=== PATIENT | male | born 1960 | race Caucasian/White ===

== ENCOUNTER 2020-02-22 20:55 | Inpatient (IN) ==
[2020-02-22] MEDS ORDERED: OPTIRAY 320 125ml IV ONE (21:37)
[2020-02-22 21:41] LABS: Basophils # (auto) 0.03 K/uL (0-0.2); Basophils % (auto) 0.3 %; Eosinophils # (auto) 0.28 K/uL (0-0.5); Eosinophils % (auto) 3.1 %; Hematocrit (blood only) 42.7 % (42-52); Hemoglobin 14.6 g/dL (14.0-18.0); Immature Granulocytes # (auto) 0.01 K/uL (0.00-0.02); Immature Granulocytes % (auto) 0.1 %; Lymphocytes # (auto) 2.67 K/uL (1.2-3.4); Lymphocytes % (auto) 29.9 %; Mean Corpuscular Hemoglobin 31.1 pg (25-34); Mean Corpuscular Hgb Conc 34.2 g/dL (32-36); Mean Platelet Volume 10.2 fL (7.4-10.4); Monocytes # (auto) 0.76 K/uL (0.11-0.59); Monocytes % (auto) 8.5 %; Neutrophils # (auto) 5.18 K/uL (1.4-6.5); Neutrophils % (auto) 58.1 %; Platelet Count 213 K/uL (130-400); RDW Standard Deviation 42.8 fL (36.4-46.3); Red Blood Count 4.69 M/uL (4.7-6.1); White Blood Count 8.93 K/uL (4.8-10.8)
[2020-02-22 21:46] LABS: iSTAT Creatinine 0.7 mg/dl (0.6-1.3); iSTAT Ionized Calcium 1.19 mmol/l (1.12-1.32)
[2020-02-22 21:50] LABS: INR 0.9 (0.9-1.1); Partial Thromboplastin Time 26.8 Seconds (21.0-31.0)
[2020-02-22 22:06] LABS: Alanine Aminotransferase 45 U/L (12-78); Albumin Level 3.6 gm/dl (3.4-5.0); Alkaline Phosphatase 69 U/L (45-117); BUN Creatinine Ratio 18.9 (10-20); Bilirubin,Total 0.3 mg/dl (0.2-1); Blood Urea Nitrogen 17 mg/dl (7-18); Calcium 8.6 mg/dl (8.5-10.1); Carbon Dioxide 27 mmol/L (21-32); Chloride 110 mmol/L (98-107); Creatinine Clr Calc Pharmacy 105.2 ml/min; Est GFR (African American) 109.2; Est GFR (Non-African American) 94.3; Globulin 3.7 gm/dl (2.5-4.0); Glucose 97 mg/dl (70-99); Sodium 142 mmol/L (136-145); Total Protein 7.3 gm/dl (6.4-8.2); Troponin I < 0.015 ng/ml (0-0.045)
--- NOTE | 2020-02-22 22:33 | Emergency Department Note ---
Impression & Plan Slurred speech, Facial droop, Tremor, High serum chloride ED Provider Note NAME: OBED EDWARD AGE: 59 SEX: M : 1960 ARRIVES VIA: Walk-In INFORMANT: Patient ED PROVIDER(S): Quentin Tobin DO CHIEF COMPLAINT: Slurred speech, stuttering speech HPI: Patient is a 59-year-old male who presents the ER for slurred speech. Symptoms have been present since this past Friday and Friday. is also noticed small amount of facial droop the right corner of the mouth. They have been constantly present but waxing and waning in intensity. He notes he got worse earlier today. Persistently drooling out of the right side of the mouth. notes that he has been having trouble getting his words out and has been slurring his words. She also notes that he has been drooling a significant amount. He notes that he has been drooling on both sides of his mouth since this past Friday. He denies any focal weakness or numbness in his arms or legs. He does have some numbness on the right side of his face. No other exacerbating or remitting factors. ROS: See above HPI for pertinent positives & negatives. A total of 10 systems reviewed and were otherwise negative. PAST MEDICAL HISTORY:See Below PAST SURGICAL HISTORY:See Below FAMILY HISTORY:See Below SOCIAL HISTORY:See Below HOME MEDICATIONS:See Below ALLERGIES:See Below VITALS:See Below PHYSICAL EXAMINATION: GENERAL: Sitting up in bed, alert, well appearing, well nourished, no distress, non-toxic EYE EXAM: normal conjunctiva. PERRL and EOM's intact. OROPHARYNX: no exudate, no erythema, lips, buccal mucosa, and tongue normal and mucous membranes are moist NECK: supple, no nuchal rigidity, no adenopathy, non-tender LUNGS: Clear to auscultation. Normal chest wall mechanics HEART: no murmurs, S1 normal and S2 normal ABDOMEN: abdomen soft, non-tender, normo-active bowel sounds, no masses, no rebound or guarding. BACK: Back is symmetrical on inspection and there is no deformity, no midline tenderness, no CVA tenderness. SKIN: no rashes and no bruising UPPER EXTREMITIES: upper extremities are grossly normal. LOWER EXTREMITIES: No pitting edema. NEURO EXAM: Normal sensorium, cranial nerves II-XII intact, stuttering speech, no weakness of arms, no weakness of legs. No drift. Finger to nose intact. Gross sensation intact. MEDICAL DECISION MAKING: Patient is a 59-year-old male who presents the ER for slurred speech, right- sided mouth droop, paresthesias on the right side of his face. He denies any other focal weakness or numbness. IV was established blood work is obtained. Labs show no significant leukocytosis or anemia. INR was unremarkable. BMP wi th a slightly elevated chloride. LFTs bilirubin was unremarkable. Troponin was negative. UA was pending. CT as well as CT angios the head and neck was negative. Patient was updated bedside. On my exam I noticed no clear droop at the right side of his mouth although the notes that it is there. With this in the slurred speech did feel after discussion with the patient is reasonable to bring him in for further evaluation. Discussed with hospitalist. Triage Nursing notes reviewed. Prior medical records reviewed Vital Signs: reviewed and remarkable for HTN Differential diagnosis: Differential Diagnosis includes but is not limited to ischemic Stroke, hemorrhagic stroke, bells palsy, mass, neoplasm, migraine headache, seizure, subarachnoid hemorrhage, TIA, and transient global amnesia. ER treatment provided: See below Diagnostics interpreted by me: ECG: Sinus rhythm rate of 70 Left axis Poor baseline Normal QTC No PVCs Cardiac Monitoring: An order was placed for continuous cardiac monitoring. The monitor shows a rate of 75 with sinus rhythm. Laboratory studies: As stated above and show below. Imaging studies: CT Angio of the head shows a hypoplastic distal right vert CT angios of the cervical spine was negative CT of the head shows no acute pathology Consultation(s): D/w Dr. Grady Flood for further evaluation ED COURSE: Procedures: none Critical Care: None Past Med/Surg History Social History Smoking Status: Never smoker Preferred Language: French Feels Safe at Home: Yes Allergies Allergies Allergy/AdvReac Type Severity Reaction Status Date / Time No Known Allergies Allergy Unverified 02/22/20 22:41 Home Meds Home Medications Medication Instructions Recorded Confirmed lorazepam 0.5 mg PO UD PRN 02/22/20 02/22/20 melatonin 15 mg PO HS 02/22/20 02/22/20 pantoprazole [Protonix] 40 mg PO DAILY 02/22/20 02/22/20 paroxetine HCl [Paxil] 20 mg PO DAILY 02/22/20 02/22/20 valbenazine [Ingrezza] 40 mg PO DAILY 02/22/20 02/22/20 Results & Data (ED) Vital Signs Vital Signs - 24 hr 02/22/20 20:58 02/22/20 21:23 02/22/20 22:04 Temperature 36.7 C Temperature Source Oral Pulse Rate 87 Pulse Rate [Apical] Pulse Rate from SpO2 Sensor 73 Pulse Rhythm [Apical] Pulse Strength [Apical] Respiratory Rate 18 Respiratory Effort / Characteristics Non-Labored Respiratory Depth Normal Blood Pressure 131/98 Blood Pressure [Left Arm] Blood Pressure Mean 109 Blood Pressure Mean [Left Arm] Blood Pressure Position [Left Arm] Pulse Oximetry 96 95 95 Oxygen Delivery Method Room Air Room Air Sepsis Recent Fever Within 48 Hours No Sepsis New/Unexplained Change in Mental Status N/A Sepsis Action Taken by Nursing No Action Required 02/22/20 22:05 02/22/20 22:10 02/22/20 22:20 Temperature Temperature Source Pulse Rate 78 75 74 Pulse Rate [Apical] 73 Pulse Rate from SpO2 Sensor 73 72 69 Pulse Rhythm [Apical] Regular Pulse Strength [Apical] Normal Respiratory Rate 15 16 21 Respiratory Effort / Characteristics Non-Labored Spontaneous Respiratory Depth Normal Blood Pressure 145/83 H Blood Pressure [Left Arm] 145/83 H Blood Pressure Mean 100 Blood Pressure Mean [Left Arm] 103 Blood Pressure Position [Left Arm] Semi-fowlers Pulse Oximetry 96 97 95 Oxygen Delivery Method Room Air Sepsis Recent Fever Within 48 Hours Sepsis New/Unexplained Change in Mental Status Sepsis Action Taken by Nursing 02/22/20 22:30 02/22/20 22:40 Temperature Temperature Source Pulse Rate 71 69 Pulse Rate [Apical] Pulse Rate from SpO2 Sensor 69 70 Pulse Rhythm [Apical] Pulse Strength [Apical] Respiratory Rate 18 15 Respiratory Effort / Characteristics Respiratory Depth Blood Pressure 140/94 Blood Pressure [Left Arm] Blood Pressure Mean 101 Blood Pressure Mean [Left Arm] Blood Pressure Position [Left Arm] Pulse Oximetry 95 97 Oxygen Delivery Method Sepsis Recent Fever Within 48 Hours Sepsis New/Unexplained Change in Mental Status Sepsis Action Taken by Nursing Laboratory Data Result diagrams: 02/22/20 21:32 02/22/20 22:16 Lab Results 02/22/20 02/22/20 02/22/20 Range/Units 21:28 21:32 21:32 WBC 8.93 (4.8-10.8) K/uL RBC 4.69 L (4.7-6.1) M/uL Hgb 14.6 (14.0-18.0) g/dL POC Hgb (14.0-18.0) g/dl Hct 42.7 (42-52) % POC Hct (42-52) % MCV 91.0 (80-100) fL MCH 31.1 (25-34) pg MCHC 34.2 (32-36) g/dL RDW Std Deviation 42.8 (36.4-46.3) fL RDW Coeff of Edwar 13.0 (11.5-14.5) % Plt Count 213 (130-400) K/uL MPV 10.2 (7.4-10.4) fL Immature Gran % (Auto) 0.1 % Neut % (Auto) 58.1 % Lymph % (Auto) 29.9 % [place] % (Auto) 8.5 % Eos % (Auto) 3.1 % Baso % (Auto) 0.3 % Neut # (Auto) 5.18 (1.4-6.5) K/uL Lymph # (Auto) 2.67 (1.2-3.4) K/uL [place] # (Auto) 0.76 H (0.11-0.59) K/uL Eos # (Auto) 0.28 (0-0.5) K/uL Baso # (Auto) 0.03 (0-0.2) K/uL Immature Gran # (Auto) 0.01 (0.00-0.02) K/uL PT 10.0 (9.0-12.0) Seconds INR 0.9 (0.9-1.1) APTT 26.8 (21.0-31.0) Seconds PTT Ratio 1.0 POC Sodium (135-144) mmol/L Sodium (136-145) mmol/L POC Potassium (3.3-5.0) mmol/L Potassium (3.5-5.1) mmol/L POC Chloride (101-112) mmol/L Chloride (98-107) mmol/L Carbon Dioxide (21-32) mmol/L POC Total CO2 (24-31) mmol/L Anion Gap (3-11) POC Anion Gap (16-25) mmol/L POC BUN (7-18) mg/dl BUN (7-18) mg/dl Creatinine (0.6-1.4) mg/dl POC Creatinine (0.6-1.3) mg/dl Est Cr Clr Drug Dosing ml/min Est GFR ( Amer) Est GFR (Non-Af Amer) BUN/Creatinine Ratio (-20) Glucose (70-99) mg/dl POC Glucose 94 (70-99) mg/dl POC Glucose (other) (70-99) mg/dl Calcium (8.5-10.1) mg/dl POC Ioniz Calcium Rolando (1.12-1.32) mmol/l Magnesium (1.8-2.4) mg/dl Total Bilirubin (0.2-1) mg/dl AST (15-37) U/L ALT (12-78) U/L Alkaline Phosphatase (45-117) U/L Troponin I (0-0.045) ng/ml Total Protein (6.4-8.2) gm/dl Albumin (3.4-5.0) gm/dl Globulin (2.5-4.0) gm/dl Albumin/Globulin Ratio (0.9-2) 02/22/20 02/22/20 02/22/20 Range/Units 21:32 21:35 22:16 WBC (4.8-10.8) K/uL RBC (4.7-6.1) M/uL Hgb (14.0-18.0) g/dL POC Hgb 15.0 (14.0-18.0) g/dl Hct (42-52) % POC Hct 44 (42-52) % MCV (80-100) fL MCH (25-34) pg MCHC (32-36) g/dL RDW Std Deviation (36.4-46.3) fL RDW Coeff of Edwar (11.5-14.5) % Plt Count (130-400) K/uL MPV (7.4-10.4) fL Immature Gran % (Auto) % Neut % (Auto) % Lymph % (Auto) % [place] % (Auto) % Eos % (Auto) % Baso % (Auto) % Neut # (Auto) (1.4-6.5) K/uL Lymph # (Auto) (1.2-3.4) K/uL [place] # (Auto) (0.11-0.59) K/uL Eos # (Auto) (0-0.5) K/uL Baso # (Auto) (0-0.2) K/uL Immature Gran # (Auto) (0.00-0.02) K/uL PT (9.0-12.0) Seconds INR (0.9-1.1) APTT (21.0-31.0) Seconds PTT Ratio POC Sodium 142 (135-144) mmol/L Sodium 142 (136-145) mmol/L POC Potassium 4.0 (3.3-5.0) mmol/L Potassium 3.9 (3.5-5.1) mmol/L POC Chloride 106 (101-112) mmol/L Chloride 110 H (98-107) mmol/L Carbon Dioxide 27 (21-32) mmol/L POC Total CO2 23 L (24-31) mmol/L Anion Gap 5.0 (3-11) POC Anion Gap 18.0 (16-25) mmol/L POC BUN 18 (7-18) mg/dl BUN 17 (7-18) mg/dl Creatinine 0.89 (0.6-1.4) mg/dl POC Creatinine 0.7 (0.6-1.3) mg/dl Est Cr Clr Drug Dosing 105.2 ml/min Est GFR ( Amer) 109.2 Est GFR (Non-Af Amer) 94.3 BUN/Creatinine Ratio 18.9 (10-20) Glucose 97 (70-99) mg/dl POC Glucose (70-99) mg/dl POC Glucose (other) 101 H (70-99) mg/dl Calcium 8.6 (8.5-10.1) mg/dl POC Ioniz Calcium Rolando 1.19 (1.12-1.32) mmol/l Magnesium 2.1 (1.8-2.4) mg/dl Total Bilirubin 0.3 (0.2-1) mg/dl AST 28 (15-37) U/L ALT 45 (12-78) U/L Alkaline Phosphatase 69 (45-117) U/L Troponin I < 0.015 (0-0.045) ng/ml Total Protein 7.3 (6.4-8.2) gm/dl Albumin 3.6 (3.4-5.0) gm/dl Globulin 3.7 (2.5-4.0) gm/dl Albumin/Globulin Ratio 1.0 (0.9-2) Administered Medications Discontinued Medications Ioversol (Optiray 320 125ml) 117 ml IV ONCE ONE Stop: 02/22/20 21:38 Last Admin: 02/22/20 21:38 Dose: 1 ml Documented by: [id number] Discharge Plan Visit Data Chief Complaint: Stroke/CVA Symptoms Stated Complaint: REF BY DOCTOR, SLURRED SPEECH, DROOLING ED Provider: Quentin Tobin Discharge Problem: Slurred speech, Facial droop, Tremor, High serum chloride Forms Stand Alone Forms: My [facility] Prescriptions Prescriptions: No Action lorazepam 0.5 mg Tablet 0.5 mg PO UD PRN (Reason: Anxiety) RF: 0 paroxetine HCl [Paxil] 20 mg Tablet 20 mg PO DAILY RF: 0 pantoprazole [Protonix] 40 mg Tablet,Delayed Release (Dr/Ec) 40 mg PO DAILY RF: 0 melatonin 5 mg Tablet 15 mg PO HS RF: 0 Ingrezza 40 mg Capsule 40 mg PO DAILY RF: 0
[2020-02-22 22:41] LABS: Potassium 3.9 mmol/L (3.5-5.1)
[2020-02-22 22:46] LABS: Magnesium 2.1 mg/dl (1.8-2.4)
[2020-02-22 23:50] LABS: Appearance Urine Clear (Clear); Bacteria Urine Automated 1+ (Negative); Bilirubin Urine Negative (Negative); Blood Urine 2+ (Negative); Color Urine Yellow; Epithelial Cell Urine Auto 0-5 /lpf (0-5); Glucose Urine UA Negative (Negative); Ketones Urine Negative (Negative); Leukocyte Esterase Urine Trace (Negative); Nitrite Urine Positive (Negative); Protein Urine Negative (Negative); Specific Gravity Urine > 1.045 (1.000-1.030); Urobilinogen Urine Negative (Negative); WBC Urine Automated >30 /hpf (0-5); pH Urine 7.5 (4.5-7.5)
--- NOTE | 2020-02-23 01:00 | History & Physical Report ---
Date of Service February 23, 2020 Assessment & Plan (1) Slurred speech: Gokul Parikh is a 59 year old man with a past medical history significant for depression who presents with four days of greatly increased drooling and stuttering difficult speech, thought she might have noticed a facial droop per history but none present on my examination Drooling and Stuttering speech Imaging all negative, no facial droop, just increased salivation and stammering, no focal weakness on exam No new medications, no new exposures Likely to be secondary to his tardive dyskinesia medication valbenazine Both drooling and extrapyrimidal side effects listed as common side effects Will hold this medication and see if patient improves Not familiar with this medication besides my brief research tonight, will consult neurology for further guidance and decision on further workup/imaging Depression/Anxiety Continuing home paroxetine and lorazepam prn DVT PPx: Lovenox F/E/N: Regular diet Dispo: Admit holding valbendazine, consulted neurology Full Code (2) Facial droop: (3) Tremor: History of Present Illness Chief Complaint: Drooling, stuttering Primary Care Provider: Leo Collins Gokul Parikh is a 59 year old man with a past medical history with a past medical history significant for depression who presents for drooling and stuttering speech pattern for last 3-4 days. He has been hospitalized for his depression in [place] and he was given an SSRI and abilify, he unfortunately developed tardive dyskinesia secondary to his antipsychotic use. He was seen by a neurologist in [place] who told him this and then he decided to seek a second opinion last year and saw a neurologist at [place] who decided to place patient on valbenazine to try to help with his tardive dyskinesia symptoms of hand and leg movement problems. This medication was somewhat helpful for him, he is now just on this medication lorazepam PRN and paroxetine 20 mg daily. His depression and anxiety has been under better control. He is also on protonix and melatonin. For past 3-4 days his speech has been abnormal, he has been stuttering and stammering, and he has been drooling more than he ever has. Says the drooling has been pouring out of his mouth and he would go to wipe it with his handkerchief and within an hour he had completely soaked two handkerchiefs. He has not been having any other concerning symptoms no fevers, no chills, no shortness of breath, no chest pain, no palpitations, no presyncope, no abdominal pain, nausea vomiting diarrhea, or constipation. Has not been on any new medications or dose changes Lives at home with , non smoker, non drinker, no drug use. FUll code Allergies Allergy/AdvReac Type Severity Reaction Status Date / Time No Known Allergies Allergy Unverified 02/22/20 22:41 Home Medications Home Medications Medication Instructions Recorded Confirmed Type Ingrezza 40 mg PO DAILY 02/22/20 02/22/20 History lorazepam 0.5 mg PO UD PRN 02/22/20 02/22/20 History melatonin 15 mg PO HS 02/22/20 02/22/20 History pantoprazole [Protonix] 40 mg PO DAILY 02/22/20 02/22/20 History paroxetine HCl [Paxil] 20 mg PO DAILY 02/22/20 02/22/20 History cephalexin 500 mg PO BID 10 Days #20 cap 02/23/20 Rx prednisone 60 mg PO DAILY 6 Days #18 tab 02/23/20 Rx Past Med/Surg History Medical History (Updated 02/24/20 @ 00:02 by Remedios Daanthony) Depression Facial droop Hyperparathyroidism Lung nodule Tardive dyskinesia Tremor Social History Smoking Status: Never smoker Hx Alcohol Use: No Hx Substance Use: No Preferred Language: Afghan Communication Ability: Effective Time Broker Required: No Beliefs That Will Affect Care: None Current Living Situation: Spouse Feels Safe at Home: Yes Assistive Devices: Glasses Review of Systems Review of Systems: All systems reviewed & are unremarkable except as noted in HPI & below Physical Exam Physical Exam: Constitutional: Well appearing 59 year old man, stuttering and stammering as he answers my questions, left hand and right foot continuously bouncing up and down. Eyes: PERRLA bilaterally, EOMMI bilaterally no nystagmus ENMT: NAD Neck: NAD, No JVD Respiratory: regular rate, no increased work of breathing, lung sounds vesicular in all lung acstillo, Cardiovascular: Regular rate rhythm, no murmurs, rubs, skips or gallops, no lower limb edema GI: Abdomen soft non tender no masses or organomegaly MSK: NAD strenth intact despite tremors Neuro: Coarse tremor of distal right upper and distal right lower extremities, stuttering stammering speech, CN II-XII intact, hyperreflexive globally, strength equal bilaterally upper and lower extremities Results & Data Results & Data ([facility]) Vital Signs (Past 12 Hours) Vital Signs Temp Pulse Pulse Resp BP BP Pulse Ox 02/23/20 00:32 74 14 160/86 H 98 02/23/20 00:30 70 16 97 02/23/20 00:04 65 02/23/20 00:01 16 137/54 L 02/22/20 23:30 120/77 97 02/22/20 23:19 67 145/87 H 96 02/22/20 23:02 71 17 89/28 L 96 02/22/20 23:00 72 20 97 02/22/20 22:40 69 15 97 02/22/20 22:30 71 18 140/94 95 02/22/20 22:20 74 21 95 02/22/20 22:10 75 16 97 02/22/20 22:05 78 73 15 145/83 H 145/83 H 96 02/22/20 22:04 95 02/22/20 21:23 95 02/22/20 20:58 36.7 C 87 18 131/98 96 Supervising Physician Co-Signing Physician Notes Attending addendum: I have physically seen this patient, have supervised the medical residents act ivities, and agree with the H&P unless as otherwise noted. Assessment and Plan: Right facial droop/slurred speech- Facial droop no longer present, main symptom is increased elevation and stammering. TIA versus side effect of medication valbenazine, which will be held until assessed by neurology Depression with anxiety- Continue Paroxetine and lorazepam. GERD- Continue pantoprazole. Remaining orders and notations as noted. Resident Activity Tracking Resident Involvement: Resident Care Provided Care Provided: [facility]
[2020-02-23] MEDS ORDERED: LORazepam 0.5 MG TAB PO PRN (02:48)
[2020-02-23] MEDS ORDERED: POLYETHYLENE (MIRALAX) 17 GM PACK PO PRN (02:48)
[2020-02-23] MEDS ORDERED: ALUMINUM/MAGNESIUM SUSP 30 ML UDC PO PRN (02:48)
[2020-02-23] MEDS ORDERED: ONDANSETRON INJ 2 MG/ML 2 ML VIAL IV PRN (02:48)
[2020-02-23] MEDS ORDERED: ACETAMINOPHEN 325 MG TAB PO PRN (02:48)
--- NOTE | 2020-02-23 06:35 | XRay Report ---
XR chest 1V portable HISTORY: 59 years-old Male cva acute strokelike symptoms COMPARISON: None TECHNIQUE: Portable AP view of the chest FINDINGS: Cardiomediastinal and hilar silhouettes are within normal limits. Minimal linear subsegmental atelect asis/scarring of the left lung base. No pneumothorax, pleural effusion, airspace consolidation or ove rt pulmonary edema. Bones of the chest appear grossly intact. IMPRESSION: No acute process. ACT 112: Negative or not required by law. The above report was generated using voice recognition software. It may contain grammatical, syntax o r spelling errors. Electronically signed by: Jan Linares M.D. 02/23/2020 6:34 AM
--- NOTE | 2020-02-23 07:28 | CT Scan Report ---
CT head/brain wo con CLINICAL HISTORY: 59 years-old Male with Stroke evaluation . Acute strokelike symptoms TECHNIQUE: Multiple axial CT images of the head were obtained without contrast. A dose lowering tech nique was utilized adhering to the principles of ALARA. COMPARISON: CTA head and neck of same day FINDINGS: No acute intracranial hemorrhage, midline shift, intracranial mass, hydrocephalus, territorial ischem ia or abnormal extra-axial collection. Mild age-related involutional changes. The calvarium is intact. The paranasal sinuses, mastoid air cells, and middle ear cavities are clear . IMPRESSION: No acute intracranial abnormality. ACT 112: Negative or not required by law. The above report was generated using voice recognition software. It may contain grammatical, syntax o r spelling errors. Electronically signed by: Jan Linares M.D. 02/23/2020 7:27 AM
--- NOTE | 2020-02-23 07:35 | CT Scan Report ---
CT angio head w con, CT angio neck with con CLINICAL HISTORY: 59 years-old Male with Stroke evaluation . Acute strokelike symptoms COMPARISON STUDY: Head CT of same day TECHNIQUE: Following the IV administration of 119 cc of Optiray 320, CT angiogram of the head and nec k was performed from the skull base to the vertex. Images are reviewed in the axial, sagittal, and co geno planes. 3-D MIPS images are created and assessed. IV contrast was administered without complica tion. All measurements were obtained according to NASCET criteria. A dose lowering technique was util ized adhering to the principles of ALARA. CT DOSE: 1143.87 mGy.cm FINDINGS: The imaged opacified pulmonary arteries appear normal. Three-vessel morphology of the thoracic aorta arch. Patency of the innominate and imaged subclavian arteries. Patent common carotid arteries. Mild mixed plaque of the carotid bulbs and proximal cervical segments of the internal carotid arteries res ults in less than 50% luminal narrowing. Internal carotid arteries are widely patent. The middle and anterior cerebral arteries are patent. Fenestrated right A1 segment. Dominant left vertebral artery. The majority of the right vertebral artery terminates into the right PICA. Patent basilar artery. Pat ent basilar arteries. The cerebral venous sinuses are patent. There is no abnormal intracranial enhan cement. Lung apices are generally clear. 5 mm partially imaged nodular opacity of the right lung apex on imag e 1 series 4 suggestive of a probable lymph node. Unremarkable soft tissues. Degenerative changes of the cervical spine. Nuchal ligament calcifications. Mild mucosal thickening of the ethmoid and spheno id sinuses. IMPRESSION: Unremarkable CTA of the head and neck without aneurysm, dissection, high-grade stenosis o r proximal branch occlusion. ACT 112: Negative or not required by law. The above report was generated using voice recognition software. It may contain grammatical, syntax o r spelling errors. Electronically signed by: Jan Linares M.D. 02/23/2020 7:33 AM
[2020-02-23] MEDS ORDERED: PARoxetine HCL 20 MG TAB PO SCH (09:00)
[2020-02-23] MEDS ORDERED: ENOXAPARIN INJ 40 MG/0.4 ML SYR SQ SCH (09:00)
[2020-02-23] MEDS ORDERED: PANTOprazole 40 MG TAB PO SCH (09:00)
[2020-02-23 09:13] LABS: Estimated Average Glucose 103 mg/dl; Hemoglobin A1C 5.2 % (4.5-5.6)
[2020-02-23] MEDS ORDERED: GADOBUTROL 65ML VIAL IV ONE (09:35)
[2020-02-23 09:40] LABS: Thyroid Stimulating Hormone 1.55 uIu/ml (0.300-4.500)
--- NOTE | 2020-02-23 10:02 | Magnetic Resonance Report ---
MR brain wo/w con HISTORY: 59 years-old Male facial droop.drooling,r/o CVA or intracranial lesi acute strokelike sympt oms with right-sided facial numbness and slurred speech COMPARISON: Head CT 02/22/2020 TECHNIQUE: Multiplanar multisequence MRI of the brain was obtained both with and without the use of 8 .0 mL Gadavist FINDINGS: Bag Mender localizer images demonstrate no gross extracranial abnormality. No restricted diffusion to sugg est acute or subacute infarct. Midline structures including the corpus callosum, brainstem, optic chi asm, pituitary and pineal glands appear unremarkable the sagittal T1 series. No cerebellar tonsillar herniation. Degenerative changes of the imaged cervical spine. There is no acute intracranial hemorrhage, midline shift, abnormal extra-axial collection, hydrocepha joseluis or intracranial mass. There are a few scattered some centimeter foci of T2/FLAIR prolongation wit hin the subcortical white matter, likely of no clinical significance. No abnormal intra-axial or extr a-axial enhancement. Study is mildly motion degraded. The major arterial flow voids at the level lung base are patent. Interval venous sinuses are also patent. Mastoid air cells are clear. Mild mucosal thickening of the ethmoid air cells. The skull, orbits and soft tissues are unremarkable. IMPRESSION: 1. Mildly motion degraded exam without acute intracranial abnormality, specifically there is no evide nce of acute or subacute infarct. 2. No abnormal enhancement. ACT 112: Negative or not required by law. The above report was generated using voice recognition software. It may contain grammatical, syntax o r spelling errors. Electronically signed by: Jan Linares M.D. 02/23/2020 10:01 AM
--- NOTE | 2020-02-23 11:48 | Electrocardiogram Report ---
Test Reason : Blood Pressure : / mmHG Vent. Rate : 070 BPM Atrial Rate : 070 BPM P-R Int : 202 ms QRS Dur : 094 ms QT Int : 388 ms P-R-T Axes : 054 -55 058 degrees QTc Int : 419 ms Poor data quality, interpretation may be adversely affected Normal sinus rhythm Left anterior fascicular block Abnormal ECG No previous ECGs available Confirmed by Elliot Garcia ([id number]) on 02/23/2020 11:47:58 AM Referred By: Leo Collins Confirmed By:Uli Garcia
--- NOTE | 2020-02-23 12:28 | Hospitalist Progress Note ---
Date of Service February 23, 2020 Assessment & Plan Admission and Anticipated Discharge Date Admission Date: February 23, 2020 Results & Data Results & Data ([facility]) Vital Signs (Past 12 Hours) Vital Signs Temp Pulse Pulse Resp BP BP Pulse Ox 02/23/20 11:49 36.9 C 73 20 118/78 93 02/23/20 07:50 36.9 C 73 18 138/81 97 02/23/20 07:00 75 02/23/20 05:00 148/76 H 02/23/20 03:00 61 02/23/20 02:50 36.3 C L 61 18 160/82 H 02/23/20 02:07 60 14 114/72 98 02/23/20 00:32 74 14 160/86 H 98 02/23/20 00:30 70 16 97 PG Care Time/CCT Total # of Minutes Spent Total Time Spent with Patient: Total time spent is greater than 50% in coordination of care (as documented) at patient's floor/unit and/or counseling patient: Coding
[2020-02-23] MEDS ORDERED: cefTRIAXone SODIUM 2,000 MG in DEXTROSE 5% 50 ML IV SCH (13:00)
--- NOTE | 2020-02-23 13:11 | Neurology Consultation ---
Date of Consultation February 23, 2020 Assessment & Plan (1) Facial droop: Gokul Parikh is a 59 yo man w/ PMH of anxiety, ?tardive dyskinesia, h/o kidney stones and GERD who p/t [facility] with acute onset of dysarthria, word finding difficulty, drooling, right FP and right facial numbness. 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 No stroke on MRI brain to explain stuttering symptoms over several days (hence, does not meet criteria for TIA either). - please check Lyme screen - prednisone taper; doxycycline if Lyme if positive # Tremor: not classic for parkinsonism, nor with any other parkinsonian features on exam. Does have likely hummingbird sign on MRI brain. 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 Would send ceruloplasmin, serum copper, PTH, and peripheral smear to r/o acanthocytes. - will defer to his outpatient neurologist for further management of his tremor Thank you for this interesting consult. Plan of care discussed with primary team. Please call or text with questions. (2) Slurred speech: History of Present Illness Attending Physician: Emmy Araiza MD History of Present Illness Gokul Parikh is a 59 yo man w/ PMH of anxiety, ?tardive dyskinesia and GERD who p/t [facility] with acute onset of dysarthria, word finding difficulty, drooling, right FP and right facial numbness. 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 In the ED, patient afebrile, BP 131/98, heart rate 87, respiratory rate 18 satting 96% on room air. Labs notable for WBC 8.93, hemoglobin 14.6, platelets 213, INR 0.9, electrolytes within normal except for mildly elevated chloride 110, creatinine 0.89, glucose 97, calcium 8.6, magnesium 2.1, LFTs within normal, troponin negative. Images independently reviewed. CT head shows no hemorrhage or hypodensity, does have benign enlargement of extra-axial spaces anteriorly. CTA head and neck shows no LVO, high grade stenosis or aneurysm; the right vertebral artery is hypoplastic and terminates in the right PICA. MRI brain shows no acute infarct, small chronic lacunar infarct in the left basal ganglia, mild small vessel disease, questionable hummingbird sign on sagittal view. CXR no infection. Further lab work shows TSH WNL, LDL 107, A1c 5.2, and UA + for infection. EKG shows left anterior fascicular block. On examination today, he reports that he was in his normal state of health until Friday when he noticed an intermittent right facial droop a/w drooling, intermittent numbness in his right cheek V2 distribution, stuttering speech and intermittent pain in his jaw on the right side. Denies any recent illness, injury or tick bites. Notes that he has had a several month history of tremor in his left upper extremity and right lower extremity. This started after he was on multiple psychotropic medications including Abilify. He initially saw Dr. Guadarrama who did a Sinemet trial without improvement in tremor. He then saw Dr. Chase at [facility] who started him on the valbenazine. Not sure if he is noticing any difference in terms of tremor. Allergies Allergy/AdvReac Type Severity Reaction Status Date / Time No Known Allergies Allergy Unverified 02/22/20 22:41 Home Medications Home Medications Medication Instructions Recorded Confirmed Type lorazepam 0.5 mg PO UD PRN 02/22/20 02/22/20 History melatonin 15 mg PO HS 02/22/20 02/22/20 History pantoprazole [Protonix] 40 mg PO DAILY 02/22/20 02/22/20 History paroxetine HCl [Paxil] 20 mg PO DAILY 02/22/20 02/22/20 History valbenazine [Ingrezza] 40 mg PO DAILY 02/22/20 02/22/20 History Patient History Social History Smoking Status: Never smoker Hx Alcohol Use: No Hx Substance Use: No Preferred Language: Danish Communication Ability: Effective Finance Associate Required: No Beliefs That Will Affect Care: None Current Living Situation: Spouse Other Information That Helps Us Care for You: No Feels Safe at Home: Yes Safety Concerns: Feels Safe At This Time Assistive Devices: Glasses Review of Systems Review of Systems: 14 point review of systems completed and negative except as in HPI. Exam (Neuro) Physical Exam: General Exam: GEN: NAD, sitting in bed. HEENT: No conjunctival injection, no rhinorrhea. CV: RRR, no peripheral edema PULM: Nonlabored respirations on room air. Neuro Exam: MS: Awake and Alert. Oriented to person, place, and month/year date. Speech fluent and appropriate with minimal dysarthria and stuttering, no paraphasic errors. Language intact including naming, comprehension, repetition. Cognition and memory mildly impaired. Attention intact. No neglect. CN: Visual castillo full. No extinction to double simultaneous stimuli. Unable to visualize fundi on fundoscopic exam. PERRLA OU. EOMI without nystagmus, slow vertical saccades. Facial sensation intact to LT, reports slightly less sensation in the R V2 distribution. Facial muscles full and symmetric (perhaps subtle nasolabial fold on the right). Hearing intact to conversation. Uvula midline with symmetric palatal elevation. Shoulder shrug normal. Tongue midline. MOTOR: Normal bulk and tone, no cogwheeling. No pronator drift. BUE strength 5- /5 at deltoids, biceps, triceps, wrist flexors and extensors, and hand grasp bilaterally. BLE strength 5-/5 at iliopsoas, hamstrings, quadriceps, tibialis anterior, and gastrocnemius bilaterally. +high frequency LUE tremor REFLEXES: 1+ at biceps, triceps, brachioradialis, 1+ patella and trace Achilles bilaterally. Flexor plantar responses bilaterally. SENSORY: Intact to LT without extinction to double simultaneous stimuli. Vibration intact throughout. COORDINATION: No dysmetria or ataxia on [id number] on the RUE, mild difficulty with intention tremor on FTN in the LUE. Finger taps are irregular speed but normal amplitude. GAIT: deferred given physical status Results & Data ([facility]) Vital Signs (Past 12 Hours) Vital Signs Temp Pulse Pulse Resp BP Pulse Ox 02/23/20 11:49 36.9 C 73 20 118/78 93 02/23/20 07:50 36.9 C 73 18 138/81 97 02/23/20 07:00 75 02/23/20 05:00 148/76 H 02/23/20 03:00 61 02/23/20 02:50 36.3 C L 61 18 160/82 H 02/23/20 02:07 60 14 114/72 98 PG Care Time/CCT Total # of Minutes Spent Total Time Spent with Patient: Total time spent is greater than 50% in coordination of care (as documented) at patient's floor/unit and/or counseling patient: Coding Level of Care Code 61234 Inpt Consult Level 5 Diagnoses Facial droop R29.810 Slurred speech R47.81
[2020-02-23] MEDS ORDERED: predniSONE 20 MG TAB PO SCH (17:00)
--- NOTE | 2020-02-23 17:08 | Discharge Summary ---
Date of Service February 23, 2020 Admission HPI Per Admitting Provider Gokul Parikh is a 59 year old man with a past medical history with a past medical history significant for depression who presents for drooling and stuttering speech pattern for last 3-4 days. He has been hospitalized for his depression in [place] and he was given an SSRI and abilify, he unfortunately developed tardive dyskinesia secondary to his antipsychotic use. He was seen by a neurologist in [place] who told him this and then he decided to seek a second opinion last year and saw a neurologist at [place] who decided to place patient on valbenazine to try to help with his tardive dyskinesia symptoms of hand and leg movement problems. This medication was somewhat helpful for him, he is now just on this medication lorazepam PRN and paroxetine 20 mg daily. His depression and anxiety has been under better control. He is also on protonix and melatonin. For past 3-4 days his speech has been abnormal, he has been stuttering and stammering, and he has been drooling more than he ever has. Says the drooling tapia s been pouring out of his mouth and he would go to wipe it with his handkerchief and within an hour he had completely soaked two handkerchiefs. He has not been having any other concerning symptoms no fevers, no chills, no shortness of breath, no chest pain, no palpitations, no presyncope, no abdominal pain, nausea vomiting diarrhea, or constipation. Has not been on any new medications or dose changes Lives at home with , non smoker, non drinker, no drug use. 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 versus exacerbation of existing tardive dyskinesia secondary to urinary tract infection Discharge Exam Constitutional WD/WN, vitals as above Eyes PERRL, conjunctivae normal, anicteric sclerae EOM intact bilaterally; no anisocoria and no nystagmus ENMT external ear and nose normal, oropharynx normal Mouth: + tongue abnormality (Tongue with frequent lateral thrusting) Very minimal clear drool coming from right side of mouth at times Neck trachea midline, no thyromegaly Respiratory normal respiratory effort, lungs clear to auscultation Cardiovascular RRR, no murmur, no edema Chest (Breasts) Chest: normal inspection of chest Gastrointestinal (Abdomen) normal bowel sounds, soft, nontender, no hepatosplenomegaly Musculoskeletal Extremities: extremities normal to inspection; no cyanosis and no clubbing Skin no rashes, warm and dry Neurologic PERRL, EOMI, accommodation nl, no face palsy, no dysarthria (Except occasional stuttering of speech) CN's II-XI intact bilaterally, deep tendon reflexes 2+ bilaterally, moves all extremities and awake; no focal motor deficits (5/5 strength in upper and lower extremities throughout) Speech / Cognition: no expressive aphasia and normal cognition Motor/Sensory: + tremor (Left upper extremity resting tremor); no pronator drift and no sensory deficit Coordination: normal [id number] test Psychiatric A+Ox3, euthymic affect Lymphatic no lymphedema Discharge Data Allergies Allergy/AdvReac Type Severity Reaction Status Date / Time No Known Allergies Allergy Unverified 02/22/20 22:41 Consultations 02/22/20 23:46 ED Decision to Admit Stat 02/23/20 02:48 Consult Neurology Routine Ordered Studies 02/22/20 21:18 CT angio head w con Urgent CT angio neck with con Urgent CT head/brain wo con Urgent 02/23/20 08:26 MR brain wo/w con Stat Chest x-ray Hospital Course (1) Drooling: With onset of drooling over the last 3 to 4 days prior to admission. With a known history of tardive dyskinesia and is followed by neurology. MRI of the brain is negative for stroke or intracranial lesion. Drooling and stuttering could be secondary to exacerbation of tardive dyskinesia by UTI versus medication side effect from his Ingrezza. Alternatively, neurology thinks perhaps he could have a mild Dean's palsy given his right-sided facial symptoms and possible noting of right sided facial droop. -He is certainly able to handle his secretions at this time. Stable for discharge to home -Okay to continue Ingrezza as is greatly helping his tremor -Treat empirically for Dean's palsy with prednisone 60 mg p.o. once daily x7-day course Lyme disease test is negative and therefore doxycycline is not needed Follow-up with outpatient neurologist (2) Slurred speech: As above Stuttering is not a neurological issue as per neurology discussion. Is likely either psychiatric or medication side effect (3) UTI (urinary tract infection): With foul-smelling urine and urinary urgency and frequency he reports for at least a month No fevers or systemic symptoms otherwise. Urinalysis here is obviously abnormal and appears infected Urine culture still pending at the time of discharge and can be followed up by PCP after discharge Treated with 1 dose of IV Rocephin here and will send out with p.o. cephalexin 500 mg p.o. 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 She recommended sending off laboratories for intact PTH, ceruloplasmin level, copper level and peripheral smear for acanthocytes. All of these labs were sent off except for the peripheral smear. The intact PTH was mildly elevated at 92 PCP should follow-up on remaining lab results after discharge Continue Ingrezza (6) Tardive dyskinesia: As above (7) Lung nodule: Noted incidentally to have a 5 mm nodule in the right upper lung on CT angiogram of the head and neck thought to be a lymph node in the lung Recommend PCP follow-up possibly with repeat CT scan of the chest in 3 months (8) Depression: Stable at this time -Continue home paroxetine 20 mg daily, lorazepam as needed (9) Hyperparathyroidism: As noted above Follow-up with PCP (10) DVT prophylaxis: Lovenox SQ was used Disposition-stable for discharged home Total Time Total Time Spent Total Time Spent (In Minutes): 40 minutes Total Time Includes: Examination of the Patient, Discharge Planning, Medication Reconciliation and Communication With Other Providers (Neurology) Discharge Plan Discharge Items Patient Disposition: Home - Self-Care Reason For Visit: DROOLING, STUTTERING SPEECH Discharge Diagnosis: UTI, 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 If your urine culture ends of growing out a bacteria that is resistant to cephalexin, then you will be contacted and the antibiotic will be changed. Your UTI may have worsened your tardive dyskinesia, thereby making you stutter and have drooling. Alternatively, your facial droop, pain, and numbness with drooling may have been caused by a Dean's Palsy. This is a temporary condition of the nerves of the face that can cause weakness and pain in the face as well as drooling. The treatment for this is prednisone (an anti-inflammatory medication) 60mg once daily x 7 days. A blood test for Lyme's disease was drawn and pending at the time of discharge. If this returns positive, you should be started on an antibiotic called doxycycline. You were found to have a "hummingbird sign" on your brain MRI which can be a sign of progressive supranuclear palsy (a degenerative brain condition). It is important that you follow up with your Neurologist as an outpatient for your tremors. You did NOT have a stroke or mini stroke. We also happened to see a small nodule in the top of your right lung that is likely a lymph node, but you should follow up with your PCP regarding any further workup for this as an outpatient in the future. Pending Studies at Discharge: Yes Studies:: Ceruloplasmin, Lyme titer, intact PTH, Copper level Stand-Alone Forms: My [facility] Medications and DC Order Prescriptions: New prednisone 20 mg Tablet 60 mg PO DAILY 6 Days Qty: 18 RF: 0 cephalexin 500 mg capsule 500 mg PO BID 10 Days Qty: 20 RF: 0 Continued lorazepam 0.5 mg Tablet 0.5 mg PO UD PRN (Reason: Anxiety) RF: 0 paroxetine HCl [Paxil] 20 mg Tablet 20 mg PO DAILY RF: 0 pantoprazole [Protonix] 40 mg Tablet,Delayed Release (Dr/Ec) 40 mg PO DAILY RF: 0 melatonin 5 mg Tablet 15 mg PO HS RF: 0 Ingrezza 40 mg Capsule 40 mg PO DAILY RF: 0 Discharge Orders: Discharge Order (Routine); Ordered 02/23/20 Ordered By: Emmy Araiza Admission Data Admit Date/Time: 02/23/20 01:52 Attending Provider: Emmy Araiza Admit Provider: [place]illo Key Primary Care Provider: Leo Collins Other Providers: Grady Gould ; Jennifer Reina Other Interventions: Discharge Summary Assessment (RN) Last Done: 02/23/20 17:15 Coding Level of Care Code D/C Day Management >30 mins Diagnoses Drooling K11.7 Slurred speech R47.81 UTI (urinary tract infection) N39.0 Facial droop R29.810 Tremor R25.1 Tardive dyskinesia G24.01 Lung nodule R91.1 Depression F32.9 Hyperparathyroidism E21.3 DVT prophylaxis Z29.9
[2020-02-23 17:20] LABS: Lyme Ab IgG w/WB Rflx Negative (Negative); Lyme Ab IgM w/WB Rflx Negative (Negative)
[2020-02-23] MEDS ORDERED: MELATONIN 3 MG TAB PO SCH (21:00)
--- NOTE | 2020-02-24 05:37 | Billing Data ---
Date of Service February 24, 2020 Coding Level of Care Code 81946 OBS Care - Level 3
[2020-03-01 16:45] LABS: Ceruloplasmin 24 mg/dL (18-36); Copper, Serum 74 mcg/dL (70-175); PTH Related Protein 11 pg/mL (14-27)
== END 2020-02-23 17:50 | disposition home or self-care (01) | DRG 74 ==
LOC: ED 20:55 → SUATTDRO 02-23 01:52 → 2N 02-23 01:52